=== PATIENT | male | born 1960 | race Caucasian/White ===

== ENCOUNTER → 2021-09-05 | Outpatient (CLI) | payer MEDICARE | LOC: KOH-I 15:17 | DX: S92.902A Unspecified fracture of left foot, initial encounter for closed fracture (principal) | CPT/HCPCS: 73630 ==

== ENCOUNTER → 2021-09-19 | Outpatient (CLI) | payer MEDICARE ==
[~2021-09-19] MED LIST: AMOX TR-K CLV1 EAC4 PO; CETIRIZINE HCL10 MG PO; DOCUSATE SODIU1 EAC1 PO; JARDIANCE25 MG PO; LIDOCAINE-PRILOC5 GM TOP; LIPITOR80 MG PO; LOW DOSE ASPIRI81 MG PO; LYRICA75 MG PO; METFORMIN HCL1000 MG PO; MIRALAX 119 GR119 GM PO; OMEPRAZOLE20 M1 PO; ONDANSETRON HCL8 MG PO; OXYCODONE HCL15 MG PO; PLAVIX 75 MG TA75 MG PO; TESTOSTERO200 MG/1 M INJ; TRADJENTA5 MG PO; URINOZINC PO; XGEVA 120120 MG/1.7 INJ; [UNRECOGNIZED DRUG - OTHER] IV; [UNRECOGNIZED DRUG - OTHER] PO
[2021-09-19 13:55] LABS: HEMOGLOBIN 12.3 gm/dl (14.0-17.5); RED BLOOD COUNT 4.77 M/UL (4.20-5.50); WHITE BLOOD COUNT 5.2 K/UL (4.5-11.0)
[2021-09-19 14:18] LABS: BUN/CREATININE RATIO 22 (0-10)
== END ==
LOC: OPSV2 12:30
PROVIDERS: Podiatrist Foot & Ankle Surgery
DX: Z01.818 Encounter for other preprocedural examination (principal)
CPT/HCPCS: 36415; 80048; 83036; 85027; 93005; 93926

== ENCOUNTER → 2021-09-27 | Day surgery (SDC) | payer MEDICARE ==
[~2021-09-27] MED LIST changes: +CLOPIDOGREL75 MG PO; +COMPAZINE10 MG PO; +NIGHTTIME SLEEP25 M2 PO; +VITAMIN C500 M3 PO
== END | disposition home or self-care (01) ==
LOC: OR 08:49
DX: I96 Gangrene, not elsewhere classified (principal); E78.5 Hyperlipidemia, unspecified; K21.9 Gastro-esophageal reflux disease without esophagitis; E11.9 Type 2 diabetes mellitus without complications; Z86.73 Personal history of transient ischemic attack (TIA), and cerebral infarction without residual deficits
CPT/HCPCS: 73630; 82962; 87070; 87077; 87186; 87205; J0690; J2001; J2704; J2795; J3010; J3370; J7030; J7120